=== PATIENT | male | born 1970 | race Caucasian/White ===

== ENCOUNTER 2025-02-11 12:49 | Outpatient (CLI) | payer OTHER, SELFPAY ==
[2025-02-11 13:30] VITALS: PULSE 90; PULSE 92
[2025-02-11] MEDS: ALBUTEROL 0.083% 2.5 MG/3 ML NEB IH (13:30)
--- NOTE | 2025-02-11 13:55 | XR_ITS ---
FINAL REPORT CLINICAL HISTORY: EMPHYSEMA COMPARISON: None FINDINGS: PA and lateral views of the chest are obtained. There is no prior exam for comparison. The cardiac and mediastinal silhouettes are within normal limits. The lungs are clear. There is no pleural effusion, pneumothorax, or acute osseous abnormality. IMPRESSION: No radiographic evidence of acute cardiac or pulmonary disease. Reviewed, Interpreted and Dictated by Anna Contreras MD Transcribed by Annel Brito Authenticated and [facility]
== END 2025-02-11 23:59 | disposition home or self-care (01) ==
LOC: RT 12:51
PROVIDERS: PCP Chiropractor; Visit Provider Chiropractor
DX: J44.9 Chronic obstructive pulmonary disease, unspecified (principal)
CPT/HCPCS: 71046; 94010; 94640; J7613